=== PATIENT | male | born 1990 | race Caucasian/White ===

== ENCOUNTER 2017-12-27 23:11 | Inpatient (IN) | payer MEDICAID ==
--- NOTE | 2017-12-28 00:09 | C.PDOC ---
History Of Present Illness Patient presents to the ER with a complaint of right lower jaw swelling and pain. Patient states he had a tooth extraction 8-10 days ago and was started on clindamycin initially with good response, however, swelling persisted. Patient saw another dentist who pulled another tooth 2 days ago and started on amoxicillin but swelling progressed. Patient is now complaining of pain and swelling to the right lower jaw, Tolerating po. Denies fever or chills. Time Seen by Provider: 12/28/17 00:08 Chief Complaint (Nursing): Dental Pain History Per: Patient History/Exam Limitations: no limitations Onset/Duration Of Symptoms: Days Current Symptoms Are (Timing): Still Present Severity: Moderate Pain Scale Rating Of: 5 Recent travel outside of the [place]: No Past Medical History Reviewed: Historical Data, Nursing Documentation, Vital Signs Vital Signs: Last Vital Signs Temp 98.8 F 12/27/17 23:21 Pulse 104 H 12/27/17 23:21 Resp 20 12/27/17 23:21 BP 116/75 12/27/17 23:21 Pulse Ox 100 12/28/17 01:19 Family History: States: No Known Family Hx - Social History Hx Alcohol Use: Yes Hx Substance Use: Yes - Immunization History Hx Tetanus Toxoid Vaccination: No Hx Influenza Vaccination: No Hx Pneumococcal Vaccination: No Review Of Systems Constitutional: Negative for: Fever, Chills ENT: Positive for: Mouth Pain, Mouth Swelling. Negative for: Throat Pain, Throat Swelling Respiratory: Negative for: Cough, Wheezing Physical Exam - Physical Exam Appears: Non-toxic Skin: Warm, Dry Head: Normacephalic Oral Mucosa: Moist, Other (Right lower jaw swelling and tenderness with surrounding 5x8cm area of erythema) Tongue: No Swelling Lips: No Swelling Gingiva: Tender (To palpation), No Bleeding Throat: No Erythema, No Exudate Neck: No Midline Cervical Tenderness, No Paracervical Tenderness, Supple, No Other (Swelling) Neurological/Psych: Oriented x3 ED Course And Treatment - Laboratory Results Result Diagrams: 12/28/17 00:25 12/28/17 00:25 O2 Sat by Pulse Oximetry: 100 (room air) Pulse Ox Interpretation: Normal Progress Note: Blood work and CT orbits/facials ordered. Flagyl, penicillin, and IV fluids administered. Disposition Discussed With : Srinivas Reeves Comment: accepted the pt on his service and took over the care at 4:20 AM Counseled Patient/Family Regarding: Studies Performed, Diagnosis - Disposition Disposition: HOSPITALIZED Disposition Time: 00:09 Condition: FAIR Forms: [facility] ([place]) - POA Present On Arrival: None - Clinical Impression Clinical Impression: Dental abscess, Cellulitis and abscess of face - Scribe Statement The provider has reviewed the documentation as recorded by the Scribe Chuckie De Leon All medical record entries made by the Scribe were at my direction and personally dictated by me. I have reviewed the chart and agree that the record accurately reflects my personal performance of the history, physical exam, medical decision making, and the department course for this patient. I have also personally directed, reviewed, and agree with the discharge instructions and disposition. Decision To Admit - Pt Status Changed To: Hospital Disposition Of: Inpatient - Admit Certification Admit to Inpatient:: After my assessment, the patient will require hospitalization for at least two midnights. This is because of the severity of symptoms shown, intensity of services needed, and/or the medical risk in this patient being treated as an outpatient. - InPatient: Physician Admission Certification: I certify that this patient requires 2 or more midnights of care for the following reason:: After my assessment, the patient will require hospitalization for at least two midnights. This is because of the severity of symptoms shown, intensity of services needed, and/or the medical risk in this patient being treated as an outpatient. - . Bed Request Type: Regular Admitting Physician: Srinivas Reeves Patient Diagnosis: Dental abscess, Cellulitis and abscess of face
[2017-12-28] MEDS ORDERED: metroNIDAZOLE IV 500 mg/100 ml 500 MG/100 ML BAG IVPB STA (00:12)
[2017-12-28] MEDS ORDERED: Sodium Chloride 0.9% 1,000 ML IV ONE ×2 (00:12→04:22)
[2017-12-28] MEDS ORDERED: Penicillin G 5 Million Unit Vial IVPB STA (00:12)
[2017-12-28 00:30] LABS: BASO % 0.2 % (0.0-2.0); EOS # 0.1 K/uL (0.0-0.7); EOS % 0.4 % (0.0-4.0); HEMOGLOBIN 14.9 g/dL (12.0-18.0); LYMPH # 2.2 K/uL (1.0-4.3); LYMPH % 16.1 % (20.0-40.0); MEAN CELL VOLUME 88.2 fL (80.0-94.0); MEAN CORPUSCULAR HEMOGLOBIN 30.4 pg (27.0-31.0); MEAN CORPUSCULAR HGB CONC 34.4 g/dL (33.0-37.0); MEAN PLATELET VOLUME 8.2 fL (7.2-11.7); MONO # 1.7 K/uL (0.0-0.8); MONO % 12.4 % (0.0-10.0); NEUT # 9.5 K/uL (1.8-7.0); NEUT % 70.9 % (50.0-75.0); RBC 4.9 Mil/uL (4.40-5.90); RED CELL DISTRIBUTION WIDTH 13.4 % (11.5-14.5); WHITE BLOOD COUNT 13.4 K/uL (4.8-10.8)
[2017-12-28 00:37] LABS: VENOUS BLOOD GAS BASE EXCESS 2.4 mmol/L (0.0-2.0); VENOUS BLOOD GAS PCO2 38 mmHg (40-60); VENOUS BLOOD GAS PO2 48 mm/Hg (30-55); VENOUS BLOOD PH 7.45 (7.32-7.43)
[2017-12-28] MEDS ORDERED: Iodixanol 320 MG/ML 100 ML BOTTLE IV ONE (00:40)
[2017-12-28] MEDS ORDERED: Iohexol 350mg/ml 100 ML ONE (00:41)
[2017-12-28 00:45] LABS: BLOOD UREA NITROGEN 10 mg/dL (9-20); CALCIUM 9.2 mg/dl (8.6-10.4); GFR AFRICAN-AMERICAN > 60; GFR NON-AFRICAN AMERICAN > 60
[2017-12-28] MEDS ORDERED: Sodium Chloride 0.9% 1,000 ML ONE (00:47)
[2017-12-28] MEDS ORDERED: metroNIDAZOLE IV 500 mg/100 ml 500 MG/100 ML BAG ONE ×2 (00:48→13:19)
--- NOTE | 2017-12-28 02:37 | CT ---
EXAM: CT Maxillofacial With Intravenous Contrast EXAM DATE/TIME: 12/28/2017 12:12 AM CLINICAL HISTORY: 27 years old, male; Pain; Jaw pain; Prior surgery; Surgery type: Removed right tooth; Additional info: Right lower jaw abscess after tooth exrtaction TECHNIQUE: Axial computed tomography images of the face with intravenous contrast. All CT scans at this facility use one or more dose reduction techniques, viz.: automated exposure control; ma/kV adjustment per patient size (including targeted exams where dose is matched to indication; i.e. head); or iterative reconstruction technique. Coronal and sagittal reformatted images were created and reviewed. CONTRAST: 100 mL of [id number] administered intravenously. COMPARISON: No relevant prior studies available. FINDINGS: BONES/JOINTS: Bony defects in the right mandible, compatible with the given history of prior tooth extraction. This involves 2 right molar teeth. No acute fractures are seen. SOFT TISSUES: Findings suspicious for a large, complex deep right facial soft tissue abscess, involving the right architect marine space. Best seen on images 31- 57 of series 3, there is a round, masslike area in the right facial soft tissues. This appears significantly complex. It has a a multi-septate appearance and an irregular, lobulated shape. Superiorly, it surrounds the angle of the right mandible circumferentially, abutting the bone directly, extending deep to the right masseter muscle, in the right architect marine space. There is no definite involvement of the right pterygoid musculature. The abscess extends laterally and inferiorly into the right perimandibular and submandibular soft tissues. It abuts and appears to connect with the site of a right posterior lower molar tooth extraction, image 35/series 601. It measures 5.3 x 4 x 4 cm maximally. It does not contain gas. There is marked swelling of the nearby right facial soft tissues, including the right masseter muscle and the right submandibular gland, which appear enlarged, highly suspicious for marked cellulitis. No evidence of soft tissue gas. LYMPH NODES: Mild lymphadenopathy in the right face and neck, most likely reactive in etiology. No evidence of diffuse pathologic lymphadenopathy. ORBITS: Intraorbital soft tissues appear grossly intact. No evidence of significant orbital emphysema. SINUSES: No evidence of sinus fluid levels. IMPRESSION: - FINDINGS HIGHLY SUSPICIOUS FOR A 5.3 X 4 CM ABSCESS IN THE DEEP RIGHT FACIAL SOFT TISSUES. THIS DIRECTLY ABUTS THE RIGHT MANDIBLE, AND INVOLVES THE RIGHT CYTOMETRY TECHNOLOGIST SPACE. IT HAS A COMPLEX, MULTISEPTATE APPEARANCE. IT APPEARS CONTIGUOUS WITH THE SITE OF A PRIOR RIGHT LOWER MOLAR TOOTH EXTRACTION. PLEASE SEE ABOVE FOR A FULL DESCRIPTION. - See above for remaining findings.
[2017-12-28] MEDS ORDERED: Penicillin G 5 Million Unit Vial IVPB SCH ×3 (04:30→10:15)
[2017-12-28] MEDS ORDERED: metroNIDAZOLE IV 500 mg/100 ml 500 MG/100 ML BAG IVPB SCH (04:30)
[2017-12-28] MEDS: metroNIDAZOLE IV 500 mg/100 ml 500 MG/100 ML BAG IVPB SCH ×3 (09:06→19:23)
--- NOTE | 2017-12-28 10:11 | CP.PCM.PN ---
<Alexandru Ricardo - Last Filed: 12/28/17 10:12> Subjective - Date & Time of Evaluation Date of Evaluation: 12/28/17 Time of Evaluation: 10:00 - Subjective Subjective: Progress note. Attending: DR. REEVES. Pt seen and examined at bedside. No acute distress. Pt admitted overnight. No fevers, chills, vomiting, diarrhea. Objective - Vital Signs/Intake and Output Vital Signs (last 24 hours): Temp Pulse Resp BP Pulse Ox 99.7 F H 88 20 105/64 100 12/28/17 08:07 12/28/17 08:07 12/28/17 08:07 12/28/17 08:07 12/28/17 08:07 - Medications Medications: Current Medications Acetaminophen (Tylenol 325mg Tab) 650 mg PO Q6 PRN PRN Reason: Fever >100.4 F Metronidazole (Flagyl) 500 mg in 100 mls @ 100 mls/hr IVPB Q6H [facility] Stop: 12/28/17 19:59 Last Admin: 12/28/17 09:06 Dose: 100 mls/hr Penicillin G Potassium (Penicillin G Potassium) 3.57832 mu 0.05 mu/kg (3.07651 mu) IVPB Q6H [facility] Stop: 12/28/17 22:16 - Labs Labs: 12/28/17 00:25 12/28/17 00:25 - Constitutional Appears: Non-toxic, No Acute Distress - Head Exam Head Exam: ATRAUMATIC, NORMOCEPHALIC. absent: NORMAL INSPECTION - Eye Exam Eye Exam: EOMI - ENT Exam ENT Exam: Mucous Membranes Moist - Neck Exam Neck Exam: Full ROM, Normal Inspection - Respiratory Exam Respiratory Exam: NORMAL BREATHING PATTERN. absent: Respiratory Distress - Cardiovascular Exam Cardiovascular Exam: +S1, +S2 - GI/Abdominal Exam GI & Abdominal Exam: Soft, Normal Bowel Sounds. absent: Tenderness - Extremities Exam Extremities Exam: Full ROM. absent: Tenderness - Neurological Exam Neurological Exam: Alert, Awake, CN II-XII Intact - Psychiatric Exam Psychiatric exam: Normal Affect, Normal Mood - Skin Skin Exam: Dry, Intact, Normal Color, Warm Assessment and Plan - Assessment and Plan (Free Text) Assessment: This is a 27 yo male with 1. Mandibular abscess -facial ct confirms abscess -ID consult. Dr. Cherry. recs appreciated -tylenol PRN for fever -IV flagyl -IV penicillin G -blood cultures pending -oral surgeon consult. DR. Rosario. recs appreciated. -pt has been afebrile with mild leukocytosis 2. GI/DVT ppx -SCDs -regular diet discussed with Dr. Reeves. <Srinivas Reeves - Last Filed: 12/28/17 20:08> Objective - Vital Signs/Intake and Output Vital Signs (last 24 hours): Temp Pulse Resp BP Pulse Ox 99.7 F H 89 16 107/59 L 99 12/28/17 08:07 12/28/17 15:27 12/28/17 15:27 12/28/17 15:27 12/28/17 15:27 - Medications Medications: Current Medications Acetaminophen (Tylenol 325mg Tab) 650 mg PO Q6 PRN PRN Reason: Fever >100.4 F Last Admin: 12/28/17 13:22 Dose: 650 mg Piperacillin Sod/Tazobactam (Sod 3.375 gm/ Sodium Chloride) 100 mls @ 200 mls/ hr IVPB Q8H [facility] Last Admin: 12/28/17 12:24 Dose: 200 mls/hr Pneumococcal Polyvalent Vaccine (Pneumovax 23 Vaccine) 0.5 ml IM .ONCE ONE Stop: 12/30/17 10:01 - Labs Labs: 12/28/17 00:25 12/28/17 00:25 Attending/Attestation - Attestation I have personally seen and examined this patient.: Yes I have fully participated in the care of the patient.: Yes I have reviewed all pertinent clinical information, including history, physical exam and plan: Yes Notes (Text): 12/28/17 20:08 case seen and discussed [facility] staff and esdient..
[2017-12-28] MEDS ORDERED: Piperacill/Tazo 3.375gm in Dex 3.375 GM/50 ML BAG IVPB SCH (11:00)
[2017-12-28] MEDS: Piperacillin/Tazobact 3.375 GM in Sodium Chloride 0.9% 100 ML IVPB SCH ×2 (12:24→20:30)
--- NOTE | 2017-12-28 17:53 | CP.PCM.HP ---
History of Present Illness - History of Present Illness History of Present Illness: Patient presents to the ER with a complaint of right lower jaw swelling and pain. Patient states he had a tooth extraction 8-10 days ago and was started on clindamycin initially with good response, however, swelling persisted. Patient saw another dentist who pulled another tooth 2 days ago and started on amoxicillin but swelling progressed. Patient is now complaining of pain and swelling to the right lower jaw, Tolerating po. Denies fever or chills. s/p iv antibiotic id ocnsult by dr pierce pt is big swelling iwth right side of face ith some fever on and off for few days like 100.6 pt is aa scale of 8/10 but it is better with pain med to 4/10 pt been told that he may need i and d Present on Admission - Present on Admission Any Indicators Present on Admission: No Past Patient History - Infectious Disease Hx of Infectious Diseases: None - Past Medical History & Family History Past Medical History?: No - Past Social History Smoking Status: Heavy Smoker > 10 Cigarettes Daily - MUSCULOSKELETAL/RHEUMATOLOGICAL Hx Falls: No - PSYCHIATRIC Hx Substance Use: Yes (marijuana) - SURGICAL HISTORY Hx Surgeries: No - ANESTHESIA Hx Anesthesia: Yes (local anesthesia) Hx Anesthesia Reactions: No Hx Malignant Hyperthermia: No Has any member of the family had a problem w/ anesthesia?: No Meds Allergies/Adverse Reactions: Allergies Allergy/AdvReac Type Severity Reaction Status Date / Time No Known Allergies Allergy Verified 12/27/17 23:25 Physical Exam - Constitutional Appears: Well - Head Exam Head Exam: ATRAUMATIC, NORMAL INSPECTION, NORMOCEPHALIC - Eye Exam Eye Exam: EOMI, Normal appearance, PERRL Pupil Exam: NORMAL ACCOMODATION, PERRL - ENT Exam ENT Exam: Mucous Membranes Moist, Normal Exam - Neck Exam Neck exam: Positive for: Normal Inspection - Respiratory Exam Respiratory Exam: Decreased Breath Sounds - Cardiovascular Exam Cardiovascular Exam: REGULAR RHYTHM, +S1, +S2 - GI/Abdominal Exam GI & Abdominal Exam: Diminished Bowel Sounds, Soft - Rectal Exam Rectal Exam: Deferred Results - Vital Signs Recent Vital Signs: Last Vital Signs Temp 99.7 F H 12/28/17 08:07 Pulse 89 12/28/17 15:27 Resp 16 12/28/17 15:27 BP 107/59 L 12/28/17 15:27 Pulse Ox 99 12/28/17 15:27 - Labs Result Diagrams: 12/30/17 07:12 12/30/17 07:12 Labs: Laboratory Results - last 24 hr 12/28/17 12/28/17 12/28/17 00:25 00:25 00:30 WBC 13.4 H RBC 4.90 Hgb 14.9 Hct 43.2 MCV 88.2 MCH 30.4 MCHC 34.4 RDW 13.4 Plt Count 321 MPV 8.2 Neut % (Auto) 70.9 Lymph % (Auto) 16.1 L [place] % (Auto) 12.4 H Eos % (Auto) 0.4 Baso % (Auto) 0.2 Neut # (Auto) 9.5 H Lymph # (Auto) 2.2 [place] # (Auto) 1.7 H Eos # (Auto) 0.1 Baso # (Auto) 0.0 pO2 48 VBG pH 7.45 H VBG pCO2 38 L VBG HCO3 26.5 VBG Total CO2 27.6 VBG O2 Sat (Calc) 91.7 H VBG Base Excess 2.4 H VBG Potassium 3.7 Glucose 111 H Lactate 0.7 Sodium 140 136.0 Potassium 3.6 Chloride 99 100.0 Carbon Dioxide 29 Anion Gap 16 BUN 10 Creatinine 0.8 Est GFR ( Amer) > 60 Est GFR (Non-Af Amer) > 60 Random Glucose 111 H Calcium 9.2 Venous Blood Potassium 3.7 Assessment & Plan (1) Cellulitis and abscess of face Status: Acute (2) Conjunctivitis Status: Acute (3) Contusion Status: Acute (4) Dental abscess Status: Acute (5) Laceration of right ring finger Status: Acute (6) Removal of suture Status: Acute (7) Toothache Status: Acute - Assessment and Plan (Free Text) Plan: 1. Mandibular abscess -facial ct confirms abscess -ID consult. Dr. Pierce. recs appreciated -tylenol PRN for fever -IV flagyl -IV penicillin G -blood cultures pending -oral surgeon consult. DR. Rosario. recs appreciated. -pt has been afebrile with mild leukocytosis 2. GI/DVT ppx -SCDs -regular diet
--- NOTE | 2017-12-28 18:18 | CP.PCM.CON ---
History of Present Illness - History of Present Illness History of Present Illness: Patient presents to the ER with a complaint of right lower jaw swelling and pain. Patient states he had a tooth extraction 8-10 days ago and was started on clindamycin initially with good response, however, swelling persisted. Patient saw another dentist who pulled another tooth 2 days ago and started on amoxicillin but swelling progressed. Patient is now complaining of pain and swelling to the right lower jaw, Tolerating po. Denies fever or chills. admitted for iv antibiotics, imaging and OMFS eval of odontogenic infection Review of Systems - Constitutional Constitutional: As Per HPI - EENT Eyes: absent: As Per HPI, Blind Spots, Blurred Vision, Change in Vision, Decreased Night Vision, Diplopia, Discharge, Dry Eye, Exophthalmos, Floaters, Irritation, Itchy Eyes, Loss of Peripheral Vision, Pain, Photophobia, Requires Corrective Lenses, Sees Flashes, Spots in Vision, Tunnel Vision, Other Visual Disturbances, Loss of Vision, Other Ears: absent: As Per HPI, Decreased Hearing, Ear Discharge, Ear Pain, Tinnitus, Abnormal Hearing, Disequilibrium, Dizziness, Other Nose/Mouth/Throat: As Per HPI - Cardiovascular Cardiovascular: absent: As Per HPI, Acrocyanosis, Chest Pain, Chest Pain at Rest , Chest Pain with Activity, Claudication, Diaphoresis, Dyspnea, Dyspnea on Exertion, Edema, Irregular Heart Rhythm, Pain Radiating to Arm/Neck/Jaw, Leg Edema, Leg Ulcers, Lightheadedness, Orthopnea, Palpitations, Paroxysmal Nocturnal Dyspnea, Pedal Edema, Radiating Pain, Rapid Heart Rate, Slow Heart Rate, Syncope, Other - Respiratory Respiratory: absent: As Per HPI, Cough, Dyspnea, Hemoptysis, Dyspnea on Exertion , Wheezing, Snoring, Stridor, Pain on Inspiration, Chest Congestion, Excessive Mucous Production, Change in Mucous Color, Pain with Coughing, Other - Gastrointestinal Gastrointestinal: absent: As Per HPI, Abdominal Pain, Belching, Bloating, Change in Bowel Habits, Change in Stool Character, Coffee Ground Emesis, Constipation, Cramping, Diarrhea, Dyspepsia, Dysphagia, Early Satiety, Excessive Flatus, Fecal Incontinence, Heartburn, Hematemesis, Hematochezia, Loose Stools, Melena, Nausea, Odynophagia, Temesmus, Vomiting, Other - Genitourinary Genitourinary: absent: As Per HPI, Change in Urinary Stream, Difficulty Urinating, Dysuria, Flank Pain, Hematuria, Pyuria, Nocturia, Urinary Incontinence, Urinary Frequency, Urinary Hesitance, Urinary Urgency, Voiding Freq/Small Amts, Freq UTI, Hx Renal/Bladder Calculi, Hx /Renal Surgery, Bladder Distension, Other - Musculoskeletal Musculoskeletal: absent: As Per HPI, Abnormal Gait, Arthralgias, Atrophy, Back Pain, Deformity, Joint Swelling, Limited Range of Motion, Loss of Height, Muscle Cramps, Muscle Weakness, Myalgias, Neck Pain, Numbness, Radiating Pain into Limb, Stiffness, Tingling, Other - Integumentary Integumentary: absent: As Per HPI, Acne, Alopecia, Bleeding Lesions, Change in Hair, Change in Nails, Change in Pigmentation, Changing Lesions, Dry Skin, Erythema, Furuncle, Hirsutism, Lesions, New Lesions, Non-Healing Lesions, Photosensitivity, Pruritus, Rash, Skin Pain, Skin Ulcer, Sores, Striae, Swelling , Unusual Bruising, Wounds, Jaundice, Other - Neurological Neurological: absent: As Per HPI, Abnormal Gait, Abnormal Hearing, Abnormal Movements, Abnormal Speech, Behavioral Changes, Burning Sensations, Confusion, Convulsions, Disequilibrium, Dizziness, Numbness, Focal Weakness, Frequent Falls , Headaches, Lack of Coordination, Loss of Vision, Memory Loss, Paresthesias, Radicular Pain, Restless Legs, Sensory Deficit, Syncope, Tingling, Tremor, Vertigo, Weakness, Other Visual Disturbances, Other - Psychiatric Psychiatric: absent: As Per HPI, Abnormal Sleep Pattern, Anhedonia, Anxiety, Auditory Hallucinations, Behavioral Changes, Change in Appetite, Change in Libido, Confusion, Depression, Difficulty Concentrating, Hallucinations, Homicidal Ideation, Hopelessness, Irritability, Memory Loss, Mood Swings, Panic Attacks, Paranoia, Suicidal Ideation, Visual Hallucinations, Tactile Hallucinations, Other - Endocrine Endocrine: absent: As Per HPI, Change in Body Appearance, Change in Libido, Cold Intolorance, Deepening of Voice, Excessive Sweating, Fatigue, Flushing, Heat Intolorance, Increase in Ring/Shoe/Hat Size, Palpitations, Polydipsia, Polyphagia, Polyuria, Other - Hematologic/Lymphatic Hematologic: absent: As Per HPI, Easy Bleeding, Easy Bruising, Lymphadenopathy, Other Past Patient History - Infectious Disease Hx of Infectious Diseases: None - Past Medical History & Family History Past Medical History?: No - Past Social History Smoking Status: Heavy Smoker > 10 Cigarettes Daily - MUSCULOSKELETAL/RHEUMATOLOGICAL Hx Falls: No - PSYCHIATRIC Hx Substance Use: Yes (marijuana) - SURGICAL HISTORY Hx Surgeries: No - ANESTHESIA Hx Anesthesia: Yes (local anesthesia) Hx Anesthesia Reactions: No Hx Malignant Hyperthermia: No Has any member of the family had a problem w/ anesthesia?: No Meds Allergies/Adverse Reactions: Allergies Allergy/AdvReac Type Severity Reaction Status Date / Time No Known Allergies Allergy Verified 12/27/17 23:25 - Medications Medications: Current Medications Acetaminophen (Tylenol 325mg Tab) 650 mg PO Q6 PRN PRN Reason: Fever >100.4 F Last Admin: 12/28/17 13:22 Dose: 650 mg Metronidazole (Flagyl) 500 mg in 100 mls @ 100 mls/hr IVPB Q6H [facility] Stop: 12/28/17 19:59 Last Admin: 12/28/17 13:21 Dose: 100 mls/hr Piperacillin Sod/Tazobactam (Sod 3.375 gm/ Sodium Chloride) 100 mls @ 200 mls/ hr IVPB Q8H [facility] Last Admin: 12/28/17 12:24 Dose: 200 mls/hr Pneumococcal Polyvalent Vaccine (Pneumovax 23 Vaccine) 0.5 ml IM .ONCE ONE Stop: 12/30/17 10:01 Physical Exam - Constitutional Appears: Non-toxic, Chronically Ill - Head Exam Head Exam: NORMOCEPHALIC - Eye Exam Eye Exam: absent: Scleral icterus - ENT Exam ENT Exam: Mucous Membranes Dry, TM's Normal Bilaterally. absent: Normal Oropharynx - Neck Exam Neck exam: Negative for: Lymphadenopathy - Respiratory Exam Respiratory Exam: Decreased Breath Sounds, Clear to Auscultation Bilateral - Cardiovascular Exam Cardiovascular Exam: REGULAR RHYTHM - GI/Abdominal Exam GI & Abdominal Exam: Diminished Bowel Sounds, Soft - Rectal Exam Rectal Exam: Deferred - Exam Exam: NORMAL INSPECTION - Extremities Exam Extremities exam: Negative for: pedal edema - Back Exam Back exam: absent: CVA tenderness (L), CVA tenderness (R) - Neurological Exam Neurological exam: Alert, CN II-XII Intact, Oriented x3, Reflexes Normal - Psychiatric Exam Psychiatric exam: Normal Mood - Skin Skin Exam: Dry Results - Vital Signs Recent Vital Signs: Last Vital Signs Temp 99.7 F H 12/28/17 08:07 Pulse 89 12/28/17 15:27 Resp 16 12/28/17 15:27 BP 107/59 L 12/28/17 15:27 Pulse Ox 99 12/28/17 15:27 - Labs Result Diagrams: 12/28/17 00:25 12/28/17 00:25 Labs: Laboratory Results - last 24 hr 12/28/17 12/28/17 12/28/17 00:25 00:25 00:30 WBC 13.4 H RBC 4.90 Hgb 14.9 Hct 43.2 MCV 88.2 MCH 30.4 MCHC 34.4 RDW 13.4 Plt Count 321 MPV 8.2 Neut % (Auto) 70.9 Lymph % (Auto) 16.1 L [place] % (Auto) 12.4 H Eos % (Auto) 0.4 Baso % (Auto) 0.2 Neut # (Auto) 9.5 H Lymph # (Auto) 2.2 [place] # (Auto) 1.7 H Eos # (Auto) 0.1 Baso # (Auto) 0.0 pO2 48 VBG pH 7.45 H VBG pCO2 38 L VBG HCO3 26.5 VBG Total CO2 27.6 VBG O2 Sat (Calc) 91.7 H VBG Base Excess 2.4 H VBG Potassium 3.7 Glucose 111 H Lactate 0.7 Sodium 140 136.0 Potassium 3.6 Chloride 99 100.0 Carbon Dioxide 29 Anion Gap 16 BUN 10 Creatinine 0.8 Est GFR ( Amer) > 60 Est GFR (Non-Af Amer) > 60 Random Glucose 111 H Calcium 9.2 Venous Blood Potassium 3.7 Assessment & Plan (1) Cellulitis and abscess of face Status: Acute (2) Dental abscess Status: Acute - Assessment and Plan (Free Text) Assessment: right facial abscess will likely need to be drained cont iv antibiotics
[2017-12-29] MEDS: Piperacillin/Tazobact 3.375 GM in Sodium Chloride 0.9% 100 ML IVPB SCH ×3 (03:40→18:44)
--- NOTE | 2017-12-29 09:52 | CP.PCM.PN ---
<Oscar Rodas - Last Filed: 12/29/17 12:50> Subjective - Date & Time of Evaluation Date of Evaluation: 12/29/17 Time of Evaluation: 09:53 - Subjective Subjective: PGY2 Medicine note for Dr. Cici Reeves; all management as per Dr. Cici Reeves Patient seen and examined without attending physician; patient denies any fevers /chills, HU, CP, SOB, abdominal pain, N/V/D, dysuria/freq/urg or lower extremity pain/swelling. States that facial pain is much improved and swelling has gone down and that he would like to get back to work as soon as possible. Objective - Vital Signs/Intake and Output Vital Signs (last 24 hours): Temp Pulse Resp BP Pulse Ox 98.8 F 88 20 97/54 L 97 12/28/17 23:35 12/28/17 23:35 12/28/17 23:35 12/28/17 23:35 12/28/17 23:35 - Medications Medications: Current Medications Acetaminophen (Tylenol 325mg Tab) 650 mg PO Q6 PRN PRN Reason: Fever >100.4 F Last Admin: 12/28/17 22:13 Dose: 650 mg Piperacillin Sod/Tazobactam (Sod 3.375 gm/ Sodium Chloride) 100 mls @ 200 mls/ hr IVPB Q8H [facility] Last Admin: 12/29/17 03:40 Dose: 200 mls/hr Pneumococcal Polyvalent Vaccine (Pneumovax 23 Vaccine) 0.5 ml IM .ONCE ONE Stop: 12/30/17 10:01 - Labs Labs: 12/28/17 00:25 12/28/17 00:25 - Constitutional Appears: Non-toxic - Head Exam Head Exam: absent: ATRAUMATIC (there is marked facial swelling on the right side with assymetrical face; patient is protecting airway, not speaking strangely, tender to palpation over mandible on the right ) - Eye Exam Eye Exam: EOMI, Normal appearance, PERRL - ENT Exam ENT Exam: Mucous Membranes Moist - Neck Exam Neck Exam: Full ROM. absent: Lymphadenopathy - Respiratory Exam Respiratory Exam: Clear to Ausculation Bilateral, NORMAL BREATHING PATTERN. absent: Rales, Rhonchi, Wheezes - Cardiovascular Exam Cardiovascular Exam: REGULAR RHYTHM, +S1, +S2 - GI/Abdominal Exam GI & Abdominal Exam: Soft, Normal Bowel Sounds. absent: Tenderness - Extremities Exam Extremities Exam: Full ROM. absent: Calf Tenderness - Back Exam Back Exam: NORMAL INSPECTION. absent: CVA tenderness (L), CVA tenderness (R) - Neurological Exam Neurological Exam: Alert, Awake, CN II-XII Intact, Normal Gait, Oriented x3 - Psychiatric Exam Psychiatric exam: Normal Affect, Normal Mood Assessment and Plan - Assessment and Plan (Free Text) Assessment: This is a 27 yo male admitted for mandibular abscess 1. Mandibular abscess -facial ct confirms abscess -ID consult. Dr. Cherry. recs appreciated -tylenol PRN for fever -Ibuprofen PRN for pain -Zosyn IV -blood cultures negative to date -oral surgeon consult. DR. Rosario. jolene appreciated; thank you for your help -pt has been afebrile with mild leukocytosis which has resolved 2. GI/DVT ppx -SCDs; patient is ambulatory young and not a fall risk; OOB encouraged -Pepcid -regular diet; chopped with supplements 2/2 to problems chewing food 2/[address] to [address] Reeves. <Sriinvas Reeves S - Last Filed: 12/31/17 18:18> Objective - Vital Signs/Intake and Output Vital Signs (last 24 hours): Temp Pulse Resp BP Pulse Ox 97.9 F 74 16 100/64 98 12/30/17 19:31 12/30/17 19:31 12/30/17 19:31 12/30/17 19:31 12/30/17 16:00 Intake and Output: 12/31/17 12/31/17 06:59 18:59 Intake Total 150 Balance 150 - Labs Labs: 12/30/17 07:12 12/30/17 07:12 Assessment and Plan (1) Cellulitis and abscess of face Status: Acute (2) Conjunctivitis Status: Acute (3) Contusion Status: Acute (4) Dental abscess Status: Acute (5) Laceration of right ring finger Status: Acute (6) Removal of suture Status: Acute (7) Toothache Status: Acute
--- NOTE | 2017-12-29 15:32 | CP.PCM.PN ---
Subjective - Date & Time of Evaluation Date of Evaluation: 12/29/17 Time of Evaluation: 10:10 - Subjective Subjective: clinically same right sided facial swelling d/w mother Objective - Vital Signs/Intake and Output Vital Signs (last 24 hours): Temp Pulse Resp BP Pulse Ox 98.8 F 88 20 97/54 L 97 12/28/17 23:35 12/28/17 23:35 12/28/17 23:35 12/28/17 23:35 12/28/17 23:35 Intake and Output: 12/29/17 12/29/17 06:59 18:59 Intake Total 500 Balance 500 - Medications Medications: Current Medications Acetaminophen (Tylenol 325mg Tab) 650 mg PO Q6 PRN PRN Reason: Fever >100.4 F Last Admin: 12/28/17 22:13 Dose: 650 mg Famotidine (Pepcid) 20 mg PO DAILY [facility] Last Admin: 12/29/17 10:42 Dose: 20 mg Piperacillin Sod/Tazobactam (Sod 3.375 gm/ Sodium Chloride) 100 mls @ 200 mls/ hr IVPB Q8H [facility] Last Admin: 12/29/17 10:42 Dose: 200 mls/hr Ibuprofen (Motrin Tab) 600 mg PO TID PRN PRN Reason: Pain, moderate (4-7) Last Admin: 12/29/17 10:42 Dose: 600 mg Pneumococcal Polyvalent Vaccine (Pneumovax 23 Vaccine) 0.5 ml IM .ONCE ONE Stop: 12/30/17 10:01 - Labs Labs: 12/28/17 00:25 12/28/17 00:25 - Constitutional Appears: Well - Head Exam Head Exam: ATRAUMATIC, NORMAL INSPECTION, NORMOCEPHALIC - Eye Exam Eye Exam: EOMI, Normal appearance, PERRL Pupil Exam: NORMAL ACCOMODATION, PERRL - ENT Exam ENT Exam: Mucous Membranes Moist, Normal Exam - Neck Exam Neck Exam: Full ROM, Normal Inspection. absent: Lymphadenopathy - Respiratory Exam Respiratory Exam: Decreased Breath Sounds - Cardiovascular Exam Cardiovascular Exam: REGULAR RHYTHM, +S1, +S2 - GI/Abdominal Exam GI & Abdominal Exam: Soft, Diminished Bowel Sounds - Rectal Exam Rectal Exam: Deferred Assessment and Plan (1) Cellulitis and abscess of face Status: Acute (2) Conjunctivitis Status: Acute (3) Contusion Status: Acute (4) Dental abscess Status: Acute (5) Laceration of right ring finger Status: Acute (6) Removal of suture Status: Acute (7) Toothache Status: Acute - Assessment and Plan (Free Text) Plan: . Mandibular abscess -facial ct confirms abscess -ID consult. Dr. Cherry. recs appreciated -tylenol PRN for fever -Ibuprofen PRN for pain -Zosyn IV -blood cultures negative to date -oral surgeon consult. DR. Rosario. recs appreciated; thank you for your help -pt has been afebrile with mild leukocytosis which has resolved 2. GI/DVT ppx -SCDs; patient is ambulatory young and not a fall risk; OOB encouraged -Pepcid -regular diet; chopped with supplements 2/2 to problems chewing food 2/2 to pain
--- NOTE | 2017-12-29 18:06 | CP.PCM.PN ---
Subjective - Date & Time of Evaluation Date of Evaluation: 12/29/17 Time of Evaluation: 08:00 - Subjective Subjective: slow progress Objective - Vital Signs/Intake and Output Vital Signs (last 24 hours): Temp Pulse Resp BP Pulse Ox 98.8 F 88 20 97/54 L 97 12/28/17 23:35 12/28/17 23:35 12/28/17 23:35 12/28/17 23:35 12/28/17 23:35 Intake and Output: 12/29/17 12/29/17 06:59 18:59 Intake Total 500 Balance 500 - Medications Medications: Current Medications Acetaminophen (Tylenol 325mg Tab) 650 mg PO Q6 PRN PRN Reason: Fever >100.4 F Last Admin: 12/28/17 22:13 Dose: 650 mg Famotidine (Pepcid) 20 mg PO DAILY [facility] Last Admin: 12/29/17 10:42 Dose: 20 mg Piperacillin Sod/Tazobactam (Sod 3.375 gm/ Sodium Chloride) 100 mls @ 200 mls/ hr IVPB Q8H [facility] Last Admin: 12/29/17 10:42 Dose: 200 mls/hr Ibuprofen (Motrin Tab) 600 mg PO TID PRN PRN Reason: Pain, moderate (4-7) Last Admin: 12/29/17 10:42 Dose: 600 mg Pneumococcal Polyvalent Vaccine (Pneumovax 23 Vaccine) 0.5 ml IM .ONCE ONE Stop: 12/30/17 10:01 - Labs Labs: 12/28/17 00:25 12/28/17 00:25 - Constitutional Appears: Non-toxic, Chronically Ill - Head Exam Head Exam: NORMOCEPHALIC - Eye Exam Eye Exam: absent: PERRL - ENT Exam ENT Exam: Mucous Membranes Dry - Neck Exam Neck Exam: absent: Lymphadenopathy - Respiratory Exam Respiratory Exam: Decreased Breath Sounds, Clear to Ausculation Bilateral - Cardiovascular Exam Cardiovascular Exam: REGULAR RHYTHM - GI/Abdominal Exam GI & Abdominal Exam: Distended, Soft - Rectal Exam Rectal Exam: Deferred - Exam Exam: NORMAL INSPECTION Assessment and Plan (1) Cellulitis and abscess of face Status: Acute (2) Dental abscess Status: Acute - Assessment and Plan (Free Text) Assessment: cont iv rx
[2017-12-30] MEDS: Piperacillin/Tazobact 3.375 GM in Sodium Chloride 0.9% 100 ML IVPB SCH ×3 (03:12→19:02)
[2017-12-30 07:19] LABS: BASO # 0.1 K/uL (0.0-0.2); BASO % 0.8 % (0.0-2.0); EOS # 0.2 K/uL (0.0-0.7); EOS % 1.7 % (0.0-4.0); HEMOGLOBIN 13.5 g/dL (12.0-18.0); LYMPH # 2.5 K/uL (1.0-4.3); LYMPH % 28.2 % (20.0-40.0); MEAN CORPUSCULAR HEMOGLOBIN 30.6 pg (27.0-31.0); MEAN CORPUSCULAR HGB CONC 34.7 g/dL (33.0-37.0); MEAN PLATELET VOLUME 7.6 fL (7.2-11.7); MONO # 1.3 K/uL (0.0-0.8); MONO % 14.3 % (0.0-10.0); NEUT # 4.9 K/uL (1.8-7.0); RBC 4.41 Mil/uL (4.40-5.90); RED CELL DISTRIBUTION WIDTH 13.5 % (11.5-14.5); WHITE BLOOD COUNT 8.9 K/uL (4.8-10.8)
[2017-12-30 07:41] LABS: ALBUMIN 3.6 g/dL (3.5-5.0); ALT/SGPT 61 U/L (21-72); AST/SGOT 35 U/L (17-59); BLOOD UREA NITROGEN 12 mg/dL (9-20); CALCIUM 9.1 mg/dl (8.6-10.4); GFR AFRICAN-AMERICAN > 60; GFR NON-AFRICAN AMERICAN > 60
[2017-12-30] MEDS ORDERED: Influenza Vaccine 60 mcg/0.5 mL SYR (4YR UP) IM ONE (10:00)
[2017-12-30] MEDS ORDERED: Pneumococcal 23-Valent Vaccine IM ONE (10:00)
--- NOTE | 2017-12-30 10:16 | CP.PCM.PN ---
Subjective - Date & Time of Evaluation Date of Evaluation: 12/30/17 Time of Evaluation: 10:15 - Subjective Subjective: PGY2 Medicine Note for Dr. Cici Reeves; all management as per Dr. Cici Reeves This patient was seen and examined at bedside today; denies any fevers/chills, HU, CP, SOB, abdominal pain, N/V/D, dysuria/freq/urg or lower extremity pain/ swelling; states that facial/pain swelling is about the same and is not improving but tolerable. Objective - Vital Signs/Intake and Output Vital Signs (last 24 hours): Temp Pulse Resp BP Pulse Ox 97.7 F 71 20 100/64 97 12/30/17 09:06 12/30/17 09:06 12/30/17 09:06 12/30/17 09:06 12/30/17 09:06 Intake and Output: 12/30/17 12/30/17 06:59 18:59 Intake Total 600 Balance 600 - Medications Medications: Current Medications Acetaminophen (Tylenol 325mg Tab) 650 mg PO Q6 PRN PRN Reason: Fever >100.4 F Last Admin: 12/28/17 22:13 Dose: 650 mg Famotidine (Pepcid) 20 mg PO DAILY [facility] Last Admin: 12/29/17 10:42 Dose: 20 mg Piperacillin Sod/Tazobactam (Sod 3.375 gm/ Sodium Chloride) 100 mls @ 200 mls/ hr IVPB Q8H [facility] Last Admin: 12/30/17 03:12 Dose: 200 mls/hr Ibuprofen (Motrin Tab) 600 mg PO TID PRN PRN Reason: Pain, moderate (4-7) Last Admin: 12/29/17 23:45 Dose: 600 mg - Labs Labs: 12/30/17 07:12 12/30/17 07:12 - Constitutional Appears: Non-toxic - Head Exam Head Exam: absent: ATRAUMATIC (marked left facial swelling, not improved from yesterday ) - Eye Exam Eye Exam: EOMI, Normal appearance, PERRL - ENT Exam ENT Exam: Mucous Membranes Moist - Neck Exam Neck Exam: Full ROM. absent: Lymphadenopathy - Respiratory Exam Respiratory Exam: Clear to Ausculation Bilateral, NORMAL BREATHING PATTERN. absent: Rales, Rhonchi, Wheezes - Cardiovascular Exam Cardiovascular Exam: REGULAR RHYTHM, +S1, +S2 - GI/Abdominal Exam GI & Abdominal Exam: Soft, Normal Bowel Sounds. absent: Tenderness - Extremities Exam Extremities Exam: Full ROM. absent: Calf Tenderness - Back Exam Back Exam: NORMAL INSPECTION. absent: CVA tenderness (L), CVA tenderness (R) - Neurological Exam Neurological Exam: Alert, Awake, Oriented x3 Assessment and Plan - Assessment and Plan (Free Text) Assessment: This is a 27 yo male admitted for sepsis 2/2 to mandibular abscess 1. Sepsis 2/2 to Mandibular abscess -facial ct confirms abscess -ID consult. Dr. Cherry. dories appreciated -tylenol PRN for fever -Ibuprofen PRN for pain -Zosyn IV -blood cultures negative to date -oral surgeon consult. DR. Rosario. jolene appreciated; thank you for your help -pt has been afebrile with mild leukocytosis which has resolved the patient will need to be transferred to another hospital for OMF surgery to drain this abscess as we do not have these surgeons on site will be contacting a hospital for acceptance 2. GI/DVT ppx -SCDs; patient is ambulatory young and not a fall risk; OOB encouraged -Pepcid -regular diet; chopped with supplements 2/2 to problems chewing food 2/2 to pain Dispo: once patient has a bed at [facility] the patient will be stable for transfer to OMF team there for drainage discussed with Dr. Reeves.
[2017-12-30 16:28] VITALS: O2SAT 98
--- NOTE | 2017-12-30 17:22 | CP.PCM.PN ---
Subjective - Date & Time of Evaluation Date of Evaluation: 12/30/17 Time of Evaluation: 09:20 - Subjective Subjective: clinically same Objective - Vital Signs/Intake and Output Vital Signs (last 24 hours): Temp Pulse Resp BP Pulse Ox 98.5 F 102 H 20 119/69 98 12/30/17 16:00 12/30/17 16:00 12/30/17 16:00 12/30/17 16:00 12/30/17 16:00 Intake and Output: 12/30/17 12/30/17 06:59 18:59 Intake Total 600 550 Balance 600 550 - Medications Medications: Current Medications Acetaminophen (Tylenol 325mg Tab) 650 mg PO Q6 PRN PRN Reason: Fever >100.4 F Last Admin: 12/28/17 22:13 Dose: 650 mg Famotidine (Pepcid) 20 mg PO DAILY [facility] Last Admin: 12/30/17 10:33 Dose: 20 mg Piperacillin Sod/Tazobactam (Sod 3.375 gm/ Sodium Chloride) 100 mls @ 200 mls/ hr IVPB Q8H [facility] Last Admin: 12/30/17 10:33 Dose: 200 mls/hr Ibuprofen (Motrin Tab) 600 mg PO TID PRN PRN Reason: Pain, moderate (4-7) Last Admin: 12/30/17 15:10 Dose: 600 mg - Labs Labs: 12/30/17 07:12 12/30/17 07:12 - Constitutional Appears: Well - Head Exam Head Exam: ATRAUMATIC, NORMAL INSPECTION, NORMOCEPHALIC Additional comments: right facial swelling - Eye Exam Eye Exam: EOMI, Normal appearance, PERRL Pupil Exam: NORMAL ACCOMODATION, PERRL - ENT Exam ENT Exam: Mucous Membranes Moist, Normal Exam - Neck Exam Neck Exam: Full ROM, Normal Inspection. absent: Lymphadenopathy - Respiratory Exam Respiratory Exam: Decreased Breath Sounds - Cardiovascular Exam Cardiovascular Exam: REGULAR RHYTHM, +S1, +S2 - GI/Abdominal Exam GI & Abdominal Exam: Soft, Diminished Bowel Sounds - Rectal Exam Rectal Exam: Deferred Assessment and Plan (1) Cellulitis and abscess of face Status: Acute (2) Conjunctivitis Status: Acute (3) Contusion Status: Acute (4) Dental abscess Status: Acute (5) Laceration of right ring finger Status: Acute (6) Removal of suture Status: Acute (7) Toothache Status: Acute - Assessment and Plan (Free Text) Plan: Spoke to the OMFS attending multiple times as well as the resident at [facility] as patient has an abscess which needs to be drained given all the detailed reports eventually they agreed operative elective with the transfer also [facility] that [facility] needs to be transferred to [facility] patient is on IV antibiotic Case discussed with the family and mother at length yesterday
--- NOTE | 2017-12-30 18:52 | CP.PCM.PN ---
Subjective - Date & Time of Evaluation Date of Evaluation: 12/30/17 Time of Evaluation: 08:00 - Subjective Subjective: still with painful swelling right mandible no Ludwigs no stridor IV antibiotics ordered Objective - Vital Signs/Intake and Output Vital Signs (last 24 hours): Temp Pulse Resp BP Pulse Ox 98.5 F 102 H 20 119/69 98 12/30/17 16:00 12/30/17 16:00 12/30/17 16:00 12/30/17 16:00 12/30/17 16:00 Intake and Output: 12/30/17 12/30/17 06:59 18:59 Intake Total 600 790 Balance 600 790 - Medications Medications: Current Medications Acetaminophen (Tylenol 325mg Tab) 650 mg PO Q6 PRN PRN Reason: Fever >100.4 F Last Admin: 12/28/17 22:13 Dose: 650 mg Famotidine (Pepcid) 20 mg PO DAILY [facility] Last Admin: 12/30/17 10:33 Dose: 20 mg Piperacillin Sod/Tazobactam (Sod 3.375 gm/ Sodium Chloride) 100 mls @ 200 mls/ hr IVPB Q8H [facility] Last Admin: 12/30/17 10:33 Dose: 200 mls/hr Ibuprofen (Motrin Tab) 600 mg PO TID PRN PRN Reason: Pain, moderate (4-7) Last Admin: 12/30/17 15:10 Dose: 600 mg - Labs Labs: 12/30/17 07:12 12/30/17 07:12 - Constitutional Appears: Non-toxic, Chronically Ill - Head Exam Head Exam: NORMOCEPHALIC - Eye Exam Eye Exam: PERRL - ENT Exam ENT Exam: Mucous Membranes Dry - Neck Exam Neck Exam: absent: Lymphadenopathy - Respiratory Exam Respiratory Exam: Decreased Breath Sounds - Cardiovascular Exam Cardiovascular Exam: REGULAR RHYTHM - GI/Abdominal Exam GI & Abdominal Exam: Distended, Soft - Rectal Exam Rectal Exam: Deferred - Exam Exam: NORMAL INSPECTION - Extremities Exam Extremities Exam: absent: Pedal Edema - Back Exam Back Exam: absent: CVA tenderness (L), CVA tenderness (R) - Neurological Exam Neurological Exam: Alert, Awake, Oriented x3 Neuro motor strength exam: Left Upper Extremity: 5, Right Upper Extremity: 5, Left Lower Extremity: 5, Right Lower Extremity: 5 - Psychiatric Exam Psychiatric exam: Normal Mood - Skin Skin Exam: Dry Assessment and Plan (1) Cellulitis and abscess of face Status: Acute (2) Dental abscess Status: Acute - Assessment and Plan (Free Text) Assessment: consider oral surgery for drainage add clinda cont zosyn
[2017-12-30 19:31] VITALS: BP 100/64; PULSE 74; RESP 16; TEMP 97.9
== END 2017-12-30 22:33 | disposition short-term general hospital (02) | DRG 185 ==
LOC: C.ER 23:11 → C.9E 12-28 04:18 → C.5S 12-28 21:56
PROVIDERS: ADMIT Internal Medicine Nephrology; ATTEND Internal Medicine Nephrology
DX: M27.2 Inflammatory conditions of jaws (principal); F17.210 Nicotine dependence, cigarettes, uncomplicated; L03.211 Cellulitis of face; H10.9 Unspecified conjunctivitis